=== PATIENT | male | born 1975 | race Two or more races ===

== ENCOUNTER 2017-12-26 18:11 | Emergency (ER) | payer BC, OTHER ==
[~2017-12-26] VITALS: Ht 180.3 cm; Wt 81.6 kg
[2017-12-26] MEDS ORDERED: PIPERACILLIN /TAZOBACTAM 3.375 G in IV D5W 50 ML IV ONE (18:30)
[2017-12-26] MEDS ORDERED: IV NS 0.9% 1,000 ML BAG IV ONE (18:30)
[2017-12-26] MEDS ORDERED: TDAP [DIPH/PERTUSSIS/TET] 0.5 ML VIAL IM ONE ×2 (18:30→18:46)
[2017-12-26] MEDS ORDERED: ONDANSETRON HCL/PF 4 MG/2 ML VIAL IVP ONE (18:30)
[2017-12-26] MEDS ORDERED: HYDROMORPHONE INJ 2 MG/ML DISP.SYRIN IV ONE (18:30)
--- NOTE | 2017-12-26 18:30 | NUR ---
PT CAME IN FOR DOG BITE TO RT SIDE JAW, RT HAND, RT UPPER LEG AND RT LOWER LEG 20 MIN [employer]. SEEN BY PA FOR EVAL. IV ACCESS STARTED. SAFETY AND COMFORT MEASURES PROVIDED. WILL MONITOR.
[2017-12-26] MEDS ORDERED: ONDANSETRON HCL/PF 4 MG/2 ML VIAL ONE (18:33)
[2017-12-26] MEDS ORDERED: HYDROMORPHONE INJ 0.5 MG/0.5 ML SYRINGE ONE (18:33)
[2017-12-26] MEDS ORDERED: MORPHINE SULFATE INJ 4 MG/ML DISP.SYRIN ONE ×3 (18:38→19:16)
[2017-12-26] MEDS ORDERED: MORPHINE SULFATE INJ 2 MG/ML DISP.SYRIN IV ONE ×4 (19:00→21:30)
[2017-12-26] MEDS ORDERED: CEFAZOLIN 1 GM in IV D5W 50 ML IV ONE ×4 (19:00)
--- NOTE | 2017-12-26 19:10 | NUR ---
AT FOR WOUND PROCEDURE.
--- NOTE | 2017-12-26 19:22 | NUR ---
RECEIVED REPORT FROM BELINDA GALE FOR [facility].
[2017-12-26] MEDS ORDERED: LIDOCAINE /MPF 1% VIAL 5 ML VIAL ONE ×2 (19:33→20:13)
--- NOTE | 2017-12-26 19:35 | NUR ---
PT MEDICATED PER MD'S ORDERS. 19G R AC IVP SLOW, WT
--- NOTE | 2017-12-26 20:10 | NUR ---
BEDSIDE FOR LAC REPAIR
--- NOTE | 2017-12-26 20:42 | NUR ---
OUT OF PT'S ROOM
--- NOTE | 2017-12-26 20:45 | NUR ---
Wound care performed per md's orders
--- NOTE | 2017-12-26 21:36 | NUR ---
Patient discharged to home in stable condition. Written and verbal after care instructions given. Patient verbalizes understanding of instruction.IV removed. Catheter intact and site benign. Pressure and 4x4 applied to site. No bleeding noted. VSS upon discharge. Pt ambulated out with steady gait accompnaied by family/friend.
[2017-12-26 21:38] VITALS: BP 149/98
== END 2017-12-26 21:39 | disposition home or self-care (01) ==
LOC: ER 18:21
DX: S01.85XA Open bite of other part of head, initial encounter (principal); S81.011A Laceration without foreign body, right knee, initial encounter; S61.411A Laceration without foreign body of right hand, initial encounter; W54.0XXA Bitten by dog, initial encounter; Y93.89 Activity, other specified; Y92.89 Other specified places as the place of occurrence of the external cause; Y99.8 Other external cause status
CPT/HCPCS: 73130-TC; 90715; A4606; A6253; A6402; A6403; J0690; J2270; J2405; J2543; J3490; J7030; J7060; Z7610